=== PATIENT | female | born 1970 | race Caucasian/White ===

== ENCOUNTER 2018-10-29 09:57 | Observation (INO) ==
--- NOTE | 2018-10-24 10:11 | PAT Medication Instructions ---
Medication Instructions Date of Service October 24, 2018 Home Medications ascorbic acid-vitamin E-biotin 2 tab PO QAM calcium carbonate-vitamin D3 2 tab PO QAM cyanocobalamin (vitamin B-12) 1,000 mcg PO WK ergocalciferol (vitamin D2) 50,000 unit PO WK multivitamin 2 tab PO QAM pantoprazole [Protonix] 40 mg PO QAM STOP taking 2 weeks before surgery ascorbic acid-vitamin E-biotin 2 tab PO QAM DO NOT take the morning of surgery calcium carbonate-vitamin D3 2 tab PO QAM cyanocobalamin (vitamin B-12) 1,000 mcg PO WK ergocalciferol (vitamin D2) 50,000 unit PO WK multivitamin 2 tab PO QAM Take morning of surgery With a small sip of water, OTHERWISE NOTHING TO EAT OR DRINK AFTER MIDNIGHT: pantoprazole [Protonix] 40 mg PO QAM Other Notes If you have any questions please call us at [phone] or [phone] or [phone] or [phone]
--- NOTE | 2018-10-24 10:41 | Anesthesiology Consultation ---
Date of Service October 24, 2018 Assessment & Plan (1) Encounter for pre-operative examination: Chart Review Chart Review: Acceptable Risk for Surgery and Patient seen in Pre Admission Testing Consults Requested none Teaching & Discussion Pre-Anesthesia Teaching/Discussion Notes: Instructed NPO after midnight before surgery, except medications with 15 cc of water. Medication instructions provided according to the PAT guidelines. History Surgery Operation Date: 10/29/18 07:30 Proposed Procedures p Abdominoplasty - Sraah Bean MD s Lipectomy with Possible Suction Assisted Lipectomy of Abdomen and Flanks - Sarah Bean MD Height/Weight Height: 5 ft 2 in Weight: 73.1 kg Allergies Allergy/AdvReac Type Severity Reaction Status Date / Time Penicillins Allergy Mild Hives Verified 10/20/18 14:16 Medications Home Medications Medication Instructions Recorded Confirmed Last Taken ascorbic acid-vitamin E-biotin 2 tab PO QAM 10/20/18 10/20/18 Unknown [Hair, Skin, Nails with Biotin] calcium carbonate-vitamin D3 2 tab PO QAM 10/20/18 10/20/18 Unknown [Caltrate 600 + D] cyanocobalamin (vitamin B-12) 1,000 mcg PO WK 10/20/18 10/20/18 Unknown [Vitamin B-12] ergocalciferol (vitamin D2) 50,000 unit PO WK 10/20/18 10/20/18 Unknown [Vitamin D2] multivitamin 2 tab PO QAM 10/20/18 10/20/18 Unknown pantoprazole [Protonix] 40 mg PO QAM 10/20/18 10/20/18 Unknown Past Medical History Medical History Excess skin had gastric bypass - currently has excess skin all over GERD (gastroesophageal reflux disease) History of hypertension no longer taking meds Hx of endometriosis Hx of type 2 diabetes mellitus no longer taking meds Past Family History Family History Father Family history of diabetes mellitus Mother Family history of diabetes mellitus Grandmother (Paternal) Family history of diabetes mellitus Past Surgical History Surgical History History of partial hysterectomy x2; currently has right ovary remaining Hx of appendectomy Internal Hernia repaired at the same time Hx of cholecystectomy Hx of decompression of ulnar nerve RIGHT Hx of gastric bypass done [place] - 2 yr ago; since surgery weight loss > 70 lbs Hx of shoulder surgery right tendon repair Nausea and vomiting after administration of anesthetic agent Past Anesthesia History No Hx of Anesthesia Complications and No Family Hx of Anesthesia Complications History of PONV Yes Motion Sickness Screening History of Motion Sickness: No Social History Smoking Status: Former smoker Do You Dip or Chew Tobacco: No Smoking End Date: QUIT 6 YR AGO. Smoked <1/2 ppd off and on x 10 years. Hx Alcohol Use: Yes Alcohol type: hard liquor alcohol intake frequency: holidays/special occasions only Hx Substance Use: No substance use type: does not use Exercise / Class Metabolic Activity II 4-5 Yardwork/Stairs/Walk up hill (Able to climb FOS. Gets 10-15K steps per day. Denies CP or SOB. ) Review of Systems Patient denies chest pain, shortness of breath, dyspnea on exertion, joint pain , cough, wheezing, palpitations. +acid reflux (controlled with meds) Physical Exam Vital Signs BP: 100/69 P: 64 R: 14 T: 98.1 SPO2: 97% on RA ENMT Mouth: + dentures (Partial plates on top and bottom) Thyromental Distance: > or= 3.5 Finger Breadths (3.5) Mallampati Class: II Neck normal visual inspection and trachea midline; neck extension not limited Respiratory normal respiratory effort Auscultation: lungs clear to auscultation bilaterally Cardiovascular Rate/Rhythm: regular rate and regular rhythm Neurologic moves all extremities Psychiatric Orientation: alert and oriented x 3 Testing Electrocardiogram Date: 10/16/18 Findings: + SB @ (56) Laboratory Results Laboratory Tests 10/16/18 10/16/18 10/16/18 11:04 11:04 11:04 WBC 8.92 Hgb 14.8 Hct 43.5 Plt Count 251 PT 10.0 INR 1.0 APTT 27.7 Sodium 136 Potassium 4.2 Chloride 105 Carbon Dioxide 31 BUN 18 Creatinine 0.61 Glucose 109 H
[~2018-10-29 09:57] MED LIST: CLINDAMYCIN 600 MG/54 ML BAG IV SCH; LR 15ML/HR IV SCH; SCOPOLAMINE 1.5 MG TDSY TD SCH
[2018-10-29] MEDS ORDERED: fentaNYL citrate 100 MCG/2 ML VIAL IV PRN (10:32)
[2018-10-29] MEDS ORDERED: ONDANSETRON INJ 2 MG/ML 2 ML VIAL IV PRN ×2 (10:32→15:18)
[2018-10-29] MEDS ORDERED: ePHEDrine sulfate 50 MG/ML AMP IV PRN (10:32)
[2018-10-29] MEDS ORDERED: ATROPINE SULFATE 0.1 MG/ML 10ML SYR IV PRN (10:32)
[2018-10-29] MEDS ORDERED: ROCURONIUM BROMIDE 10 MG/ML 5 ML VIAL ONE (10:41)
[2018-10-29] MEDS ORDERED: fentaNYL citrate 100 MCG/2 ML VIAL ONE ×2 (10:41→15:38)
[2018-10-29] MEDS ORDERED: MIDAZOLAM HCL 1 MG/ML 2ML VIAL ONE (10:41)
[2018-10-29] MEDS ORDERED: PROPOFOL IV EMULSION 10 MG/ML 20 ML VIAL IV ONE (10:41)
[2018-10-29] MEDS ORDERED: LIDOCAINE HCL 2% 2 ML VIAL/AMP(20MG/ML) INFIL ONE (10:41)
[2018-10-29] MEDS ORDERED: ONDANSETRON INJ 2 MG/ML 2 ML VIAL ONE ×2 (10:41→14:14)
[2018-10-29] MEDS ORDERED: EPINEPHrine INJ 1 MG/ML AMP ONE (11:16)
[2018-10-29] MEDS ORDERED: LIDOCAINE HCL 1% 20 ML VIAL ONE (11:17)
[2018-10-29] MEDS ORDERED: BUPIVACAINE 0.5 % 5 MG/1 ML MPF 30ML VIAL ONE (11:17)
[2018-10-29] MEDS ORDERED: LIDOCAINE/EPINEPHRINE 1% 20 ML VIAL ONE (11:17)
[2018-10-29] MEDS ORDERED: BUPIVACAINE 0.25% 30 ML VIAL ONE (11:22)
--- NOTE | 2018-10-29 11:28 | History & Physical Bridge Note ---
Date of Service October 29, 2018 History & Physical Bridge Note I have examined the patient, reviewed the History & Physical and in the interval since the performance of the History & Physical I have noted the following changes of clinical significance: no changes noted
[2018-10-29] MEDS ORDERED: HYDROmorphone INJ 2 MG/ML SYR/VIAL ONE (12:01)
[2018-10-29] MEDS ORDERED: GLYCOPYRROLATE 0.2 MG/ML VIAL ONE (14:14)
[2018-10-29] MEDS ORDERED: NEOSTIGMINE METHYLSULFATE 5 MG/5 ML SYR ONE (14:14)
--- NOTE | 2018-10-29 15:07 | Post Operative Brief Note ---
Immediate Post Op Note v1 Date of Surgery October 29, 2018 Pre & Post Diagnosis Operation Date: 10/29/18 11:50 Pre-Op Diagnosis: Abdominal Pannus Post-Op Diagnosis: Abdominal Pannus Procedure Operation Date: 10/29/18 11:50 Actual Procedures p Abdominoplasty(Not Applicable) - Sarah Bean MD Surgeon Sarah Bean MD [employer] Craftsman Gabriella Pelaez PA-C Estimated Blood Loss 50 Findings Consistent with Post-Op Diagnosis Drains Holguni Catheter and Kayden-Albarran Drain (x2)
[2018-10-29] MEDS ORDERED: MoRPHine SULFATE 4 MG/ML 1 ML CARP\\VIAL IV PRN ×3 (15:18)
[2018-10-29] MEDS ORDERED: ACETAMINOPHEN 325 MG TAB PO PRN (15:18)
[2018-10-29] MEDS ORDERED: LORazepam 0.5 MG TAB PO PRN (15:18)
[2018-10-29] MEDS ORDERED: PROMETHAZINE HCL 12.5 MG in SODIUM CHLORIDE 0.9% 50 ML IV PRN (15:18)
[2018-10-29] MEDS ORDERED: DiphenhydrAMINE HCL 50 MG/ML VIAL IV PRN (15:18)
[2018-10-29] MEDS ORDERED: OXYCODONE/ACETAMINOPHEN 5mg/325mg TAB PO PRN (15:18)
--- NOTE | 2018-10-29 15:29 | Operative Report ---
Post Operative Report Pre & Post Diagnosis Operation Date: 10/29/18 11:50 Pre-Op Diagnosis: Abdominal Pannus Post-Op Diagnosis: Abdominal Pannus Procedure Operation Date: 10/29/18 11:50 Actual Procedures p Abdominoplasty(Not Applicable) - Sarah Bean MD Surgeon Sarah Bean MD Production Cook Gabriella Pelaez PA-C Estimated Blood Loss 50 Findings Consistent with Post-Op Diagnosis Specimens abdominal pannus Anesthesia Type General Complications none Disposition Disposition: Surgical ICU Indications Patient was scheduled for panniculectomy due to weight loss, abdominal pannus, intertrigo. Desired cosmetic improvement in the upper abdomen as well as plication of rectus muscles and thus a portion of the procedure was performed cosmetically. Description of Procedure The risks, benefits, and alternatives of procedure were explained the patient agreed and signed consent. She was identified and marked in the preoperative holding area. She was brought to the operating room where she was positioned supine and placed under anesthesia without incident. Holguin catheter was placed. SCDs were placed. Surgical site was prepped and draped sterilely. A timeout procedure was performed.Preoperatively planned incision had been marked with mid portion of the transverse lower abdominal incision was marked 7 mm above the vulvar commissure and extended from anterior superior iliac spine bilaterally. The incision performed using a 15 blade scalpel to make the incision through skin and into the underlying dermis. The incision was deepened using electrocautery and was carried down to anterior abdominal wall. Flap was raised off of the anterior abdominal wall in a beveled fashion using electrocautery and achieving hemostasis throughout using electrocautery and 3-0 Vicryl ties. Dissection was carried cephalad to the umbilicus. The umbilical incision was made using a 15 blade scalpel. I then split the lower abdominal flap up the midline to the umbilical incision and the umbilicus was carefully dissected out using electrocautery. The stalk remained viable throughout this procedure. At this point, we began the cosmetic portion of the procedure. Dissection was performed widely at the level of the umbilicus and then, a narrower dissection was performed above the umbilicus to the xiphoid process using electrocautery. Once I was able to expose the rectus diastasis, plication was performed using 0 Prolene [id number] sutures, both superior and inferior to the umbilicus. This was reinforced using an 0 Prolene running suture, both superiorly and inferiorly. An area of fascial weakness on the left side was repaired using 0 Prolene. Following this, the mons pubis was directly defatted using electrocautery and Allis clamps. Once hemostasis was assured, the bed was flexed to facilitate closure. This marked the end of the cosmetic portion of the procedure (58 minutes). The upper abdominal skin flap was sutured under tension in the midline to the mons pubis. The skin flaps were then marked for resection, making sure that they were under adequate tension, but still able to facilitate wound closure. The flaps were removed using a 15 blade scalpel to make the incision, which was then deepened using electrocautery through dermis, subcutaneous fat, and Shanon's fascia. Some residual subscarpal fat was identified and directly resected using electrocautery. The umbilical position was then marked in an inverted triangle position. 0.25% Marcaine plain was used to inject the rectus fascia. Wound was inspected one last time for hemostasis and 15-Qatari Chepe drains were passed through separate stab incisions in the mons pubis and placed into the wound bed. Closure was then begun in a lateral to medial direction using 2-0 Vicryl Shanon's fascia sutures, 2-0 Vicryl deep dermal sutures. Dogears were excised bilaterally using a 15 blade scalpel and electrocautery. Closure was completed using 2-0 PDO superficial dermal running Quill suture and 3-0 Monocryl subcuticular suture. The umbilical incision was made using a 15 blade scalpel and deepened with electrocautery. The umbilicus was identified and able to be brought through the incision. It was inset using 4-0 chromic half buried horizontal mattress sutures. It remained viable throughout. Dermabond Prineo was applied to the lower abdominal incision. Xeroform was packed into the umbilicus and placed around the drains. Dry dressings were applied followed by a surgical bra and abdominal binder. The procedure was tolerated well. The patient was awakened and transferred to the recovery room in satisfactory condition. Gabriella Pelaez PA-C was present and scrubbed throughout the entire procedure and was instrumental in providing retraction during dissection and assisting in simultaneous wound closure. I attest to the content of the Intraoperative Record and any orders documented therein. Any exceptions are noted below.
--- NOTE | 2018-10-29 15:46 | Anesthesiology Progress Note ---
Date of Service October 29, 2018 Anesthesia Post Procedure Vital Signs Vital Signs: Temp Pulse Pulse Resp BP Pulse Ox 10/29/18 15:20 36.3 C L 65 16 165/98 H 99 10/29/18 10:27 36.3 C L 64 16 111/69 97 Notes Mental Status: alert / awake / arousable and participated in evaluation Patient Amnestic to Procedure: Yes Nausea / Vomiting: adequately controlled Pain: adequately controlled Airway Patency, RR, SpO2: stable & adequate BP & HR: stable & adequate Hydration State: stable & adequate Anesthetic Complications: no major complications apparent and Pt Satisfied with anesthetic care
[2018-10-29] MEDS: CHECK SCOPOLAMINE PATCH PLACEMENT SCH ×2 (16:40→23:35)
[2018-10-29] MEDS: D5W AND 1/2NSS 1,000 ML IV SCH (17:12)
[2018-10-29] MEDS: CLINDAMYCIN 600 MG in DEXTROSE 5% 50 ML IV SCH (19:37)
[2018-10-30] MEDS: CLINDAMYCIN 600 MG in DEXTROSE 5% 50 ML IV SCH (03:03)
[2018-10-30] MEDS: OXYCODONE/ACETAMINOPHEN 5mg/325mg TAB PO PRN ×3 (03:03→11:03)
[2018-10-30] MEDS: D5W AND 1/2NSS 1,000 ML IV SCH (07:00)
[2018-10-30] MEDS: CHECK SCOPOLAMINE PATCH PLACEMENT SCH (07:49)
[2018-10-30] MEDS ORDERED: MULTIVITAMIN TAB PO SCH ×2 (09:00)
[2018-10-30] MEDS ORDERED: PANTOprazole 40 MG TAB PO SCH (09:00)
--- NOTE | 2018-10-30 09:03 | Surgery Progress Note ---
Date of Service October 30, 2018 Assessment & Plan (1) Abdominal pannus: s/p abdominoplasty. 1. doing well. ok to d/c home after void. shralene sent to patient's pharmacy. Present on Admission?: Yes Subjective patient resting comfortably. has no concerns. garcia removed this AM. has not voided yet. Has gotten out of bed Physical Exam Vital Signs (Past 24 Hours): Last Vital Signs Temp 37.4 C 10/30/18 02:54 Pulse 89 10/30/18 02:54 Resp 14 10/30/18 02:54 BP 110/72 10/30/18 02:54 Pulse Ox 93 10/30/18 02:54 Constitutional: WD/WN, vitals as above no acute distress Skin: + incision (CDI, no evidence of infection. drains with appropiate output)
--- NOTE | 2018-10-30 13:31 | Anesthesiology Progress Note ---
Date of Service October 30, 2018 Anesthesia Post Procedure Vital Signs Vital Signs: Temp Pulse Pulse Resp BP BP Pulse Ox 10/30/18 10:56 37.4 C 67 84 14 110/72 116/78 95 10/30/18 08:00 37.4 C 84 14 116/78 95 10/30/18 02:54 37.4 C 89 14 110/72 93 10/29/18 23:00 37.3 C 82 16 109/71 93 10/29/18 19:24 37.1 C 66 18 123/80 99 10/29/18 18:20 67 16 132/85 100 10/29/18 17:25 67 16 130/82 99 10/29/18 16:56 36.6 C 56 L 16 148/87 H 99 10/29/18 16:20 36.7 C 72 16 161/87 H 95 10/29/18 16:00 37.3 C 54 L 12 145/83 H 97 10/29/18 15:50 53 L 11 L 152/86 H 100 10/29/18 15:40 56 L 19 171/88 H 100 10/29/18 15:30 59 L 13 170/88 H 100 10/29/18 15:20 36.3 C L 65 16 165/98 H 99 Pain Intensity Abdomen: Pain Intensity: 5 Notes Mental Status: alert / awake / arousable and participated in evaluation Patient Amnestic to Procedure: Yes Nausea / Vomiting: adequately controlled Pain: adequately controlled Airway Patency, RR, SpO2: stable & adequate BP & HR: stable & adequate Hydration State: stable & adequate Anesthetic Complications: no major complications apparent and Pt Satisfied with anesthetic care
--- NOTE | 2018-10-31 09:35 | Discharge Summary ---
Date of Service October 31, 2018 Admission HPI Per Admitting Provider see admission H&P Admission Exam Per Admitting Provider see admission H&P Principal Diagnosis abdominal pannus Discharge Exam Constitutional WD/WN, vitals as above no acute distress Skin + incision (CDI, no evidence of infection. drains with appropiate output) Discharge Data Allergies Allergy/AdvReac Type Severity Reaction Status Date / Time Penicillins Allergy Mild Hives Verified 10/29/18 10:23 Procedures Performed Operation Date: 10/29/18 11:50 Actual Procedures p Abdominoplasty(Not Applicable) - Sarah Bean MD Hospital Course (1) Abdominal pannus: Patient presented to [facility] with history of abdominal pannus. She was taken to the OR and underwent abdominoplasty. There were no intraoperative complications. She was taken to recovery and transferred to med/surg. On POD#1, the patient was resting comfortably. She had her garcia removed and voided. She was able to ambulate. Patient was discharged home. Total Time Total Time Spent Total Time Spent (In Minutes): 15 Total Time Includes: Examination of the Patient, Discharge Planning and Medication Reconciliation Discharge Plan Discharge Items Patient Disposition: Home - Self-Care Reason For Visit: Abdominal Pannus Discharge Diagnosis: s/p abdominoplasty Discharge Goals: Decrease discomfort and Improve function Activity: As commented below Non-emergency contact: Surgeon Call non-emergency contact if: your pain is not controlled, you have a fever and your wound has increased redness Follow-up/Referrals: Destin Shaw D.OShan [Primary Care Provider] - Diet: Regular Addtl Provider Instructions: ACTIVITY RECOMMENDATIONS: __Normal activities _x_No bending, lifting or straining __No driving __Driving allowed when you are off pain medications _x_Walking permitted __You should have help at home for ___ days DRESSINGS: __No dressings required _x_Keep dressings dry/in place until first office visit __Remove dressings ___ and leave dressings off __Apply ice ___ days __Remove dressings and reapply garment __Apply antibiotic ointment (Bacitracin, Neosporin, etc) to wounds 3-4 times/day for 10 days BATHING: _x_Keep dressings dry _x_Sponge bathing permitted __Showering permitted _x_No swimming, hot tubs or soaking in a tub MEDICATIONS: Resume previous medications unless instructed otherwise by your surgeon. _x_Do not use aspirin, Motrin, Advil or Ibuprofen as these may promote bleeding. Please use Tylenol. _x _Prescription(s) provided: pain medication provided at your last office visit. anti-nausea medication was sent to your pharmacy today OTHER INSTRUCTIONS: _x_Record drain output 2-3 times per day SPECIAL CARE INSTRUCTIONS: * It is normal to have a mild fever after surgery. If your temperature is higher than 101.5 degrees F, please call the office at [phone]. * Constipation is a typical side effect of pain medication. An [id number] stool softener will help relieve this. * Leaking around surgical drains may occur and should not cause concern. Sometimes these drains become clogged. If this happens, remove the bulb and milk the clot out of the tube, then replace the bulb. * Drainage from wounds after liposuction is normal and should be expected. Garments will become soiled. You should protect furniture and bedding. This drainage should mostly subside within 2-3 days. Leave garments in place unless instructed to remove them. * If you have unusual drainage from a wound or are concerned you have an infection or have any questions or concerns, please call the office at [phone]. FOLLOW UP VISIT: If not already scheduled, please call the office, , when you return home after surgery to schedule an appointment to be seen in _1__ days. Prescriptions: Continued multivitamin Tablet 2 tab PO QAM RF: 0 cyanocobalamin (vitamin B-12) [Vitamin B-12] 1,000 mcg Tablet Extended Release 1,000 mcg PO WK RF: 0 pantoprazole [Protonix] 40 mg Tablet,Delayed Release (Dr/Ec) 40 mg PO QAM RF: 0 ergocalciferol (vitamin D2) [Vitamin D2] 50,000 unit Capsule 50,000 unit PO WK RF: 0 Caltrate 600 + D 600 mg (1,500 mg)-800 unit Tablet,Chewable 2 tab PO QAM RF: 0 Discontinued Hair, Skin, Nails with Biotin 7.5-7.5-1,250 mg-unit-mcg Tablet,Chewable 2 tab PO QAM RF: 0 Stand-Alone Forms: My [facility] Jero/Other Patient Handouts: Tube Kayden Albarran Drainage Care Discharge Orders: Discharge Order (Routine); Ordered 10/30/18 Ordered By: Gabriella Pelaez Admission Data Admit Date/Time: 10/29/18 15:18 Attending Provider: Sarah Bean Admit Provider: Sarah Bean Primary Care Provider: Destin Shaw Service: Surgical Services Other Interventions: Discharge Summary Assessment (RN) Last Done: 10/30/18 10:56 Pending Studies at Discharge: Yes Studies:: pathology DC Date/Time DO NOT enter until pt leaves facility: 10/30/18 11:12
== END 2018-10-30 11:12 | disposition home or self-care (01) ==
LOC: ASU 09:57 → 3N 09:57